=== PATIENT | female | born 1975 | race Caucasian/White ===

== ENCOUNTER 2019-05-07 18:42 | Emergency (ER) | payer SELFPAY ==
[~2019-05-07] VITALS: Ht 170.2 cm; Wt 111.6 kg
[2019-05-07 18:45] VITALS: Ht 170.2 cm; Wt 111.6 kg
[2019-05-07 19:33] LABS: CALCIUM 9.2 mg/dL (8.5-10.1); CARBON DIOXIDE 26.3 mmol/L (21-32); CHLORIDE SERUM 102 mmol/L (98-107); CREATININE SERUM 0.7 mg/dL (0.6-1.0); GFR1 > 60 mL/min; GLUCOSE SERUM 111 mg/dL (74-106); POTASSIUM SERUM 3.9 mmol/L (3.5-5.1); SODIUM SERUM 138 mmol/L (136-145)
[2019-05-07 19:37] LABS: ALBUMIN 3.5 g/dL (3.4-5.0); ALKALINE PHOSPHATASE 90 U/L (46-116); ALT/SGPT 80 U/L (14-59); AST/SGOT 53 U/L (15-37); BILIRUBIN TOTAL 0.5 mg/dL (0.20-1.00)
[2019-05-07 19:49] LABS: BASOPHIL % 0.1 % (0-2); PLATELET COUNT 246 x10^3mcL (130-400); RED CELL DISTRIBUTION WIDTH 13.4 % (11.5-14.5)
[2019-05-07 21:02] VITALS: BP 127/77
== END 2019-05-07 21:02 | disposition home or self-care (01) ==
LOC: ED 18:42
PROVIDERS: Emergency Medicine
DX: R07.89 Other chest pain (principal); F19.939 Other psychoactive substance use, unspecified with withdrawal, unspecified; F41.9 Anxiety disorder, unspecified
CPT/HCPCS: 36415; 83880; 85378; Q0092